=== PATIENT | male | born 1990 | race American Indian/Alaskan Native ===

== ENCOUNTER 2020-01-09 13:03 | Emergency (ER) | payer SELFPAY ==
[2020-01-09 14:47] VITALS: BP 128/83
--- NOTE | 2020-01-09 15:14 | XRay Report ---
CHEST 2 VIEWS INDICATION: cough, EVAN. COMPARISON: none FINDINGS: Support devices: None. Heart: Within normal limits. Lungs: No acute air space or interstitial disease. Pleura: No significant pleural effusion. No pneumothorax. Additional findings: None. IMPRESSION: 1. No acute findings. Signer Name: Greg Nguyễn MD Signed: 01/09/2020 3:09 PM Workstation Name: [id number]
--- NOTE | 2020-01-09 15:49 | Emergency Department Report ---
ED General Adult HPI - General Chief complaint: Upper Respiratory Infection Stated complaint: COUGH, SOB Time Seen by Provider: 01/09/20 15:03 Source: patient Mode of arrival: Ambulatory Limitations: No Limitations - History of Present Illness Initial comments: 29-year-old -[place] male patient presents with complaints of cough x3 months and shortness of breath x1.5 weeks. He reports that 1 month ago he was seen at an urgent care and placed on doxycycline and prednisone. He states that his symptoms did improve after completing the antibiotics for about 1 week and then began to worsen again. He also reports that he had a tactile fever at that time, however denies any further fever shows chills/sweats. The shortness of breath occurs intermittently with exertion and also when patient is lying down. He denies any swelling, chest pain, leg pain/swelling, recent long travel, hemoptysis, or history of DVT/PE/cancer. He denies any prior medical history and states he is a non-smoker -: Gradual - Related Data Previous Rx's Medication Instructions Recorded Last Taken Type Albuterol Sulfate [Proventil Hfa] 6.7 gm IH Q4H PRN #1 hfa.aer.ad 01/09/20 Unknown Rx Benzonatate 200 mg PO TID PRN #30 capsule 01/09/20 Unknown Rx Prednisone [predniSONE 10 mg 10 mg PO .TAPER #1 tab.ds.pk 01/09/20 Unknown Rx (6-Day Pack, 21 Tabs)] levoFLOXacin [Levaquin TAB] 500 mg PO QDAY 7 Days #7 tablet 01/09/20 Unknown Rx Allergies Allergy/AdvReac Type Severity Reaction Status Date / Time No Known Allergies Allergy Unverified 01/09/20 14:47 ED Review of Systems ROS: Stated complaint: COUGH, SOB Other details as noted in HPI Constitutional: denies: chills, fever Eyes: denies: vision change ENT: denies: throat pain Respiratory: cough, orthopnea, shortness of breath Cardiovascular: denies: chest pain Gastrointestinal: denies: abdominal pain, nausea, vomiting Neurological: denies: headache Hematological/Lymphatic: denies: easy bruising, swollen glands ED Past Medical Hx - Past Medical History Previous Medical History?: No - Surgical History Past Surgical History?: No - Social History Smoking Status: Never Smoker Substance Use Type: None - Medications Home Medications: Home Medications Medication Instructions Recorded Confirmed Last Taken Type Albuterol Sulfate [Proventil Hfa] 6.7 gm IH Q4H PRN #1 hfa.aer.ad 01/09/20 Unknown Rx Benzonatate 200 mg PO TID PRN #30 capsule 01/09/20 Unknown Rx Prednisone [predniSONE 10 mg 10 mg PO .TAPER #1 tab.ds.pk 01/09/20 Unknown Rx (6-Day Pack, 21 Tabs)] levoFLOXacin [Levaquin TAB] 500 mg PO QDAY 7 Days #7 tablet 01/09/20 Unknown Rx ED Physical Exam - General Limitations: No Limitations General appearance: alert, in no apparent distress - Head Head exam: Present: atraumatic, normocephalic - Eye Eye exam: Present: normal appearance. Absent: scleral icterus - ENT ENT exam: Present: mucous membranes moist - Neck Neck exam: Present: normal inspection, full ROM. Absent: lymphadenopathy - Respiratory Respiratory exam: Present: rhonchi (Bilateral mid rhonchi noted ). Absent: respiratory distress, wheezes, rales, stridor, chest wall tenderness - Cardiovascular Cardiovascular Exam: Present: regular rate, normal rhythm. Absent: systolic murmur, diastolic murmur, rubs, gallop - GI/Abdominal GI/Abdominal exam: Present: soft. Absent: distended, tenderness, guarding, rebound, rigid - Expanded GI/Abdominal Exam Expanded GI/Abdominal exam: Absent: ascites - Extremities Exam Extremities exam: Present: normal inspection. Absent: calf tenderness (No swelling or tenderness noted to legs bilateral) - Back Exam Back exam: Present: normal inspection - Neurological Exam Neurological exam: Present: alert, oriented X3 - Psychiatric Psychiatric exam: Present: normal affect, normal mood - Skin Skin exam: Present: warm, dry, intact, normal color. Absent: rash, cyanosis, diaphoretic, ecchymosis ED Course Vital Signs 01/09/20 14:43 Temperature 98 F Pulse Rate 95 H Respiratory 18 Rate Blood Pressure 128/83 O2 Sat by Pulse 98 Oximetry ED Medical Decision Making - Lab Data Result diagrams: 01/09/20 16:04 01/09/20 16:04 - Medical Decision Making 29-year-old -[place] male patient presents with complaints of cough x3 months and shortness of breath x1.5 weeks. He reports that 1 month ago he was seen at an urgent care and placed on doxycycline and prednisone. Patient also reports history of recurrent bronchitis. On exam there are rhonchi noted bilaterally in the lung whipple. Chest x-ray is negative for pneumonia or acute abnormalities. CBC CMP and BNP are normal. PERC score = 0. Will treat for bacterial bronchitis with Levaquin given failure on doxycycline. Patient also instructed to get COVID testing and was provided with a list of COVID testing facilities. Recommend follow-up with primary care within 3 to 5 days. Discussed in great detail signs and symptoms that should prompt immediate return to the emergency department, patient verbalizes understanding. Critical care attestation.: If time is entered above; I have spent that time in minutes in the direct care of this critically ill patient, excluding procedure time. ED Disposition Clinical Impression: Acute bacterial bronchitis Disposition: TO HOME OR SELFCARE Is pt being admited?: No Condition: Stable Instructions: Acute Bronchitis (ED) Prescriptions: Benzonatate 200 mg PO TID PRN #30 capsule PRN Reason: Cough levoFLOXacin [Levaquin TAB] 500 mg PO QDAY 7 Days #7 tablet Prednisone [predniSONE 10 mg (6-Day Pack, 21 Tabs)] 10 mg PO .TAPER #1 tab.ds.pk Albuterol Sulfate [Proventil Hfa] 6.7 gm IH Q4H PRN #1 hfa.aer.ad PRN Reason: Shortness Of Breath Referrals: [facility] [Provider Group] - 3-5 Days
[2020-01-09 16:47] LABS: Alanine Aminotransferase 23 units/L (7-56); Albumin 4.4 g/dL (3.9-5); BUN/Creatinine Ratio 12; Blood Urea Nitrogen 13 mg/dL (9-20); Calcium 9.5 mg/dL (8.4-10.2); Hemolysis Index 5
[2020-01-09 17:13] LABS: Basophils # (Auto) 0.1 K/mm3 (0.0-0.1); Basophils % (Auto) 0.6 % (0.0-1.8); Eosinophils # (Auto) 0.2 K/mm3 (0.0-0.4); Eosinophils % (Auto) 1.9 % (0.0-4.3); Hematocrit 42.7 % (35.5-45.6); Hemoglobin 14.4 gm/dl (11.8-15.2); Lymphocytes # (Auto) 3.1 K/mm3 (1.2-5.4); Lymphocytes % (Auto) 36.4 % (13.4-35.0); Mean Corpuscular HGB Conc 34 % (32-34); Mean Corpuscular Volume 87 fl (84-94); Monocytes # (Auto) 0.7 K/mm3 (0.0-0.8); Monocytes % (Auto) 7.9 % (0.0-7.3); Platelet Count 320 K/mm3 (140-440); Red Blood Count 4.92 M/mm3 (3.65-5.03); Red Cell Distribution Width 13.8 % (13.2-15.2)
== END 2020-01-09 17:47 | disposition home or self-care (01) ==
LOC: ED 13:03
DX: J20.9 Acute bronchitis, unspecified (principal); Z79.899 Other long term (current) drug therapy
CPT/HCPCS: 36415; 71046; 80053; 83880; 85025; 99283

== ENCOUNTER 2021-09-03 18:30 | Emergency (ER) | payer SELFPAY ==
[2021-09-03 19:52] VITALS: BP 135/100
--- NOTE | 2021-09-03 21:03 | XRay Report ---
Right-sided rib series 4 views INDICATION: Right rib pain following injury IMPRESSION: No displaced rib fracture is identified. The lungs are clear. No pneumothorax. Signer Name: Laz Smith MD Signed: 09/03/2021 8:59 PM Workstation Name: [id number]
== END 2021-09-04 01:18 | disposition left against medical advice (07) ==
LOC: ED 18:30
DX: R07.81 Pleurodynia (principal); Z53.21 Procedure and treatment not carried out due to patient leaving prior to being seen by health care provider; W18.39XA Other fall on same level, initial encounter; Y93.89 Activity, other specified; Y92.89 Other specified places as the place of occurrence of the external cause; Y99.8 Other external cause status